=== PATIENT | male | born 1985 | race Caucasian/White ===

== ENCOUNTER 2016-07-04 18:16 | Emergency (ER) | payer OTHER ==
[~2016-07-04] VITALS: Ht 177.8 cm; Wt 86.2 kg
[2016-07-04] MEDS ORDERED: DIPHTH,PERTUSS(ACELL),TET TOX 0.5 ML DISP.SYRIN. VAX IM ONE (19:15)
[2016-07-04] MEDS ORDERED: HYDROCODONE/APAP 5/325MG TABLET. PO ONE (19:30)
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
[2016-07-04] MEDS ORDERED: HYDR-2666 PO (22:08)
[2016-07-04 22:25] VITALS: BP 128/78
== END 2016-07-04 22:25 | disposition home or self-care (01) ==
LOC: ER 18:16
DX: S02.40FA Zygomatic fracture, left side, initial encounter for closed fracture (principal); F12.10 Cannabis abuse, uncomplicated; Z88.0 Allergy status to penicillin; V19.9XXA Pedal cyclist (driver) (passenger) injured in unspecified traffic accident, initial encounter; Y93.55 Activity, bike riding; Y92.482 Bike path as the place of occurrence of the external cause; Y99.8 Other external cause status
CPT/HCPCS: 70450; 70486; 72125; 99284-25

== ENCOUNTER → 2018-11-28 | Outpatient (CLI) | payer OTHER ==
[~2018-11-28] MED LIST: HYDR-2761 PO; IOHEXOL 240 MG/ML 50ML VIAL. PO ONE; IOHEXOL 300 MG/ML 100ML VIAL. IV ONE
--- NOTE | 2018-11-28 11:35 | KCIC ---
Exam performed: CT scan of the abdomen and pelvis with contrast Clinical Indication: Abdominal pain, history of hernia repair Date of Service: 11/28/2018 no priors Technique: Contiguous helical acquisitions are obtained from the lung bases to the pelvis during intravenous administration of [100 cc of Omnipaque 300]. In addition oral contrast was also given. Sagittal and coronal reformatted images were obtained and reviewed. CT abdomen findings: The lung bases appear essentially clear. The liver, spleen ,gall bladder and pancreas appears unremarkable. Both adrenal glands and bilateral kidneys appear normal with symmetric excretion of contrast via both kidneys. The small bowel loops appear nondilated and unremarkable. Aorta is normal in caliber. There is no retroperitoneal lymphadenopathy or mass lesions. Appendix is normal. No bowel related inflammatory stranding is noted. The urinary bladder is well distended and normal . Prostate gland, seminal vesicles and the rectum appear normal. Interrogation of bone windows demonstrates no obvious bony abnormality. Sagittal and coronal reformatted images were obtained and reviewed which demonstrate no additional findings. Impression abdomen and pelvis : 1. No acute intra-abdominal or pelvic process is detected. PQRS Compliance Statement: One or more of the following individualized dose reduction techniques were utilized for this examination: 1. Automated exposure control 2. Adjustment of the mA and/or kV according to patient size 3. Use of iterative reconstruction technique Electronically signed by: Jesika Powell MD (11/28/2018 11:32 AM) [facility]
== END | disposition home or self-care (01) ==
LOC: KCIC CT 09:33
PROVIDERS: ATTEND Family Medicine
DX: R10.9 Unspecified abdominal pain (principal); F17.200 Nicotine dependence, unspecified, uncomplicated; Z88.0 Allergy status to penicillin
CPT/HCPCS: 74177; Q9966; Q9967

== ENCOUNTER → 2020-04-23 | Outpatient (CLI) | payer OTHER ==
[~2020-04-23] MED LIST changes: -IOHEXOL 240 MG/ML 50ML VIAL. PO ONE; -IOHEXOL 300 MG/ML 100ML VIAL. IV ONE
--- NOTE | 2020-04-23 09:50 | KCIC ---
PQRS Compliance Statement: One or more of the following individualized dose reduction techniques were utilized for this examinat ion: 1. Automated exposure control 2. Adjustment of the mA and/or kV according to patient size 3. Use of iterative reconstruction technique CT abdomen/pelvis without contrast 04/23/2020 8:21 AM INDICATION: Bilateral flank pain, microscopic hematuria COMPARISON: CT abdomen/pelvis 11/28/2018 TECHNIQUE: Multiple axial CT images of the abdomen and pelvis were obtained without intravenous contr ast. Coronal and sagittal reformats are provided. FINDINGS: Lung bases are clear. Heart size is within normal limits. Evaluation of the solid abdominal viscera is limited by lack of intravenous contrast. No suspicious hepatic lesions are identified. Sp baljit, bilateral adrenal glands, pancreas and gallbladder are normal in appearance. Abdominal aorta is normal in course and caliber. No pathologically enlarged lymph nodes are identified in the abdomen a nd pelvis. There is no free fluid or free intraperitoneal air. Small and large bowel are normal in caliber. There is no bowel obstruction or inflammation. Appendix is normal in appearance. There is a supraumbilical hernia containing fat measuring 9 mm along the mid line. The kidneys are relatively symmetric in appearance. There is no suspicious renal mass within the limi tations of a noncontrast examination. There is no hydronephrosis. There are no calculi within the kid neys, ureters or urinary bladder. Urinary bladder wall thickening is noted. Prostate and seminal vesi cles appear normal. No suspicious osseous abnormality is identified. Minimal retrolisthesis of L3 on L4. IMPRESSION: 1. Bladder wall thickening may be associated with cystitis or underdistention. Correlate with urinaly sis. 2. No evidence for obstructive uropathy. 3. 9 mm supraumbilical midline ventral hernia containing noninflamed fat. Electronically signed by: Linda Ignacio MD (04/23/2020 9:48 AM) [facility]
== END ==
LOC: KCIC CT 08:19
PROVIDERS: ATTEND Family Medicine
DX: K43.9 Ventral hernia without obstruction or gangrene (principal)
CPT/HCPCS: 74176